=== PATIENT | male | born 1935 | race Caucasian/White ===

== ENCOUNTER 2016-05-10 14:29 | Inpatient (IN) | payer MEDICARE ==
[2016-05-10] MEDS ORDERED: Pantoprazole IV* 40 MG IV ONE (15:10)
[2016-05-10] MEDS: NS 0.9% 1000 ML* 2,000 ML IV ONE ×2 (16:20→17:01)
[2016-05-10 16:39] LABS: Hematocrit 28 % (42-52); Hemoglobin 9.4 g/dl (14.0-18.0); Mean Corpuscular HGB Conc 34 g/dl (31-36); Mean Corpuscular Hemoglobin 31 pg (27-31); Mean Corpuscular Volume 90 fL (80-94); Mean Platelet Volume 10 um3 (7.4-10.4); Red Blood Count 3.07 10^6/ul (4.0-5.4); Red Cell Distribution Width 14 % (10.5-15)
[2016-05-10 16:55] LABS: ALT 15 U/L (7-52); AST 18 U/L (13-39); Albumin 3.5 g/dL (3.2-5.2); Alkaline Phosphatase 30 U/L (34-104); Anion Gap 9 mmol/L (2-11); Blood Urea Nitrogen 36 mg/dL (6-24); C Reactive Protein < 1.00 mg/L (< 5.00); CO2 Carbon Dioxide 25 mmol/L (22-32); Calcium 8.8 mg/dL (8.6-10.3); Chloride 106 mmol/L (101-111); Creatine Kinase 100 U/L (10-223); EGFR African American 92.9 (>60); EGFR Non-African American 72.3 (>60); Globulin 2.2 g/dL (2-4); Glucose 115 mg/dL (70-100); Lipase 42 U/L (11.0-82.0); Potassium 3.9 mmol/L (3.5-5.0); Sodium 140 mmol/L (133-145); Total Protein 5.7 g/dL (6.4-8.9)
[2016-05-10 17:02] LABS: Troponin I 0.04 ng/mL (<0.04)
--- NOTE | 2016-05-10 17:52 | ED ---
lamin Campuzano Timothy, scribed for Kj Jj MD on 05/10/16 at 1508 . GI/ HPI - HPI Summary HPI Summary: Bebo Oro is a 80 yo male presenting to [facility] with 7-9 episodes of melena over the past [address] Ruiz recommended he present to [facility] because his Hgb dropped 6 points in 1 minute. He feels dizzy. He is not in any current pain. He is not on any medications. His MHx includes appendectomy. - History of Current Complaint Chief Complaint: EDGIBleed Time Seen by Provider: 05/10/16 14:59 Stated Complaint: BLOOD IN STOOL Hx Obtained From: Patient Onset/Duration: Started Days Ago, Still Present Timing: Constant Severity: Moderate Current Severity: Moderate Pain Intensity: 0 Associated Signs and Symptoms: Positive: Dizziness, Black Tarry Stool Aggravating Factor(s): Nothing Alleviating Factor(s): Nothing - Allergy/Home Medications Allergies/Adverse Reactions: Allergies Allergy/AdvReac Type Severity Reaction Status Date / Time No Known Allergies Allergy Verified 05/10/16 14:31 PMH/Surg Hx/FS Hx/Imm Hx - Surgical History Surgery Procedure, Year, and Place: appendectomy Infectious Disease History: No Infectious Disease History: Denies: Traveled Outside the [place] in Last 30 Days - Social History Alcohol Use: Rare Substance Use Type: Reports: None Smoking Status (MU): Never Smoked Tobacco Review of Systems Constitutional: Negative Eyes: Negative ENT: Negative Cardiovascular: Negative Respiratory: Negative Gastrointestinal: Other - melena Genitourinary: Negative Musculoskeletal: Negative Skin: Negative Neurological: Other - dizziness Psychological: Normal All Other Systems Reviewed And Are Negative: Yes Physical Exam - Summary Physical Exam Summary: The patient is well-nourished in no acute distress and in no acute pain. The skin is warm and dry and skin color reflects adequate perfusion. HEENT: The head is normocephalic and atraumatic. The pupils are equal and reactive. The conjunctivae without drainage but not pale. Nares are patent and without drainage. Mouth reveals moist mucous membranes and the throat is without erythema and exudate. The external ears are intact. The ear canals are patent and without drainage. The tympanic membranes are intact. Neck is supple with full range of motion and non-tender. There are no carotid bruits. There is no neck vein distension. Respiratory: Chest is non-tender. Lungs are clear to auscultation and breath sounds are symmetrical and equal. Cardiovascular: Hear is regular rate and rhythm. There is no murmur or rub auscultated. There is no peripheral edema and pulses are symmetrical and equal. Abdomen: The abdomen is soft and non-tender. There are normal bowel sounds heard in all four quadrants and there is no organomegaly palpated. Musculoskeletal: There is no back pain noted. Extremities are non-tender with full range of motion. There is good capillary refill. There is no peripheral edema or calf tenderness elicited. Neurological: Patient is alert and oriented to person, place and time. The patient has symmetrical motor strength in all four extremities. Cranial nerves are grossly intact. Deep tendon reflexes are symmetrical and equal in all four extremities. Psychiatric: The patient has an appropriate affect and does not exhibit any anxiety or depression. Triage Information Reviewed: Yes Vital Signs On Initial Exam: Initial Vitals Temp Pulse Resp BP Pulse Ox 97.5 F 94 16 131/82 100 05/10/16 14:31 05/10/16 14:31 05/10/16 14:31 05/10/16 14:31 05/10/16 14:31 Vital Signs Reviewed: Yes Diagnostics - Vital Signs Vital Signs Temp Pulse Resp BP Pulse Ox 05/10/16 14:46 92 97 05/10/16 14:44 130/79 05/10/16 14:31 97.5 F 94 16 131/82 100 - Laboratory Lab Results: Lab Results 05/10/16 05/10/16 05/10/16 Range/Units 16:25 16:25 16:25 WBC 7.0 (3.5-10.8) 10^3/ul RBC 3.07 L (4.0-5.4) 10^6/ul Hgb 9.4 L (14.0-18.0) g/dl Hct 28 L (42-52) % MCV 90 (80-94) fL MCH 31 (27-31) pg MCHC 34 (31-36) g/dl RDW 14 (10.5-15) % Plt Count 177 (150-450) 10^3/ul MPV 10 (7.4-10.4) um3 Neut % (Auto) 72.6 (38-83) % Lymph % (Auto) 17.6 L (25-47) % [place] % (Auto) 8.5 (1-9) % Eos % (Auto) 0.7 (0-6) % Baso % (Auto) 0.6 (0-2) % Absolute Neuts (auto) 5.1 (1.5-7.7) 10^3/ul Absolute Lymphs (auto) 1.2 (1.0-4.8) 10^3/ul Absolute Monos (auto) 0.6 (0-0.8) 10^3/ul Absolute Eos (auto) 0 (0-0.6) 10^3/ul Absolute Basos (auto) 0 (0-0.2) 10^3/ul Absolute Nucleated RBC 0 10^3/ul Nucleated RBC % 0.1 INR (Anticoag Therapy) (0.89-1.11) APTT (26.0-36.3) seconds Sodium 140 (133-145) mmol/L Potassium 3.9 (3.5-5.0) mmol/L Chloride 106 (101-111) mmol/L Carbon Dioxide 25 (22-32) mmol/L Anion Gap 9 (2-11) mmol/L BUN 36 H (6-24) mg/dL Creatinine 1.00 (0.67-1.17) mg/dL Est GFR ( Amer) 92.9 (>60) Est GFR (Non-Af Amer) 72.3 (>60) BUN/Creatinine Ratio 36.0 H (8-20) Glucose 115 H (70-100) mg/dL Lactic Acid 1.6 (0.5-2.0) mmol/L Calcium 8.8 (8.6-10.3) mg/dL Total Bilirubin 0.50 (0.2-1.0) mg/dL AST 18 (13-39) U/L ALT 15 (7-52) U/L Alkaline Phosphatase 30 L (34-104) U/L Total Creatine Kinase 100 (10-223) U/L Troponin I 0.04 H* (<0.04) ng/mL C-Reactive Protein < 1.00 (< 5.00) mg/L Total Protein 5.7 L (6.4-8.9) g/dL Albumin 3.5 (3.2-5.2) g/dL Globulin 2.2 (2-4) g/dL Albumin/Globulin Ratio 1.6 (1-3) Lipase 42 (11.0-82.0) U/L Blood Type Antibody Screen 05/10/16 05/10/16 Range/Units 16:25 16:25 WBC (3.5-10.8) 10^3/ul RBC (4.0-5.4) 10^6/ul Hgb (14.0-18.0) g/dl Hct (42-52) % MCV (80-94) fL MCH (27-31) pg MCHC (31-36) g/dl RDW (10.5-15) % Plt Count (150-450) 10^3/ul MPV (7.4-10.4) um3 Neut % (Auto) (38-83) % Lymph % (Auto) (25-47) % [place] % (Auto) (1-9) % Eos % (Auto) (0-6) % Baso % (Auto) (0-2) % Absolute Neuts (auto) (1.5-7.7) 10^3/ul Absolute Lymphs (auto) (1.0-4.8) 10^3/ul Absolute Monos (auto) (0-0.8) 10^3/ul Absolute Eos (auto) (0-0.6) 10^3/ul Absolute Basos (auto) (0-0.2) 10^3/ul Absolute Nucleated RBC 10^3/ul Nucleated RBC % INR (Anticoag Therapy) 1.06 (0.89-1.11) APTT 24.1 L (26.0-36.3) seconds Sodium (133-145) mmol/L Potassium (3.5-5.0) mmol/L Chloride (101-111) mmol/L Carbon Dioxide (22-32) mmol/L Anion Gap (2-11) mmol/L BUN (6-24) mg/dL Creatinine (0.67-1.17) mg/dL Est GFR ( Amer) (>60) Est GFR (Non-Af Amer) (>60) BUN/Creatinine Ratio (8-20) Glucose (70-100) mg/dL Lactic Acid (0.5-2.0) mmol/L Calcium (8.6-10.3) mg/dL Total Bilirubin (0.2-1.0) mg/dL AST (13-39) U/L ALT (7-52) U/L Alkaline Phosphatase (34-104) U/L Total Creatine Kinase (10-223) U/L Troponin I (<0.04) ng/mL C-Reactive Protein (< 5.00) mg/L Total Protein (6.4-8.9) g/dL Albumin (3.2-5.2) g/dL Globulin (2-4) g/dL Albumin/Globulin Ratio (1-3) Lipase (11.0-82.0) U/L Blood Type B Positive Antibody Screen Negative Result Diagrams: 05/10/16 16:25 05/10/16 16:25 Lab Statement: Any lab studies that have been ordered have been reviewed, and results considered in the medical decision making process. - EKG 1611 Cardiac Rate: NL - 77 BPM EKG Interpretation: NSR @ 77 BPM, normal axis GIGU Course/Dx - Course Assessment/Plan: Bebo Oro is a 80 yo male presenting to [facility] with 7-9 episodes of black tarry stool over the past 3 days. He was sent here by Dr. Ruiz for a Hgb declining 6 points in 1 minute. After clinical examination and review of his EKG and lab work, as well as discussion with Dr. Hogan, he will be admitted ot [facility] [place] for further evaluation and treatment. - Diagnoses Differential Diagnoses - Male: Peptic Ulcer Disease, Other Provider Diagnoses: GI bleed - Physician Notifications Discussed Care Of Patient With: 1520 - Dr. Ruiz's office - Attempted to reach Dr. Ruiz, but he is out this afternoon. 1645 - Dr. Hogan (hospitalist) - discussed Pt condition, agrees to admit Pt. Discharge - Discharge Plan Condition: Stable Disposition: ADMITTED TO [facility] Discharge Disposition Comment: admitted for further evaluation and treatment of his GI bleed Referrals: Quan Ruiz MD [Primary Care Provider] - The documentation as recorded by the lamin duffy Timothy accurately reflects the service I personally performed and the decisions made by me, Kj Jj MD.
[2016-05-10] MEDS ORDERED: NS 0.9% 1000 ML* 1,000 ML IV SCH (18:00)
[2016-05-10] MEDS ORDERED: Acetaminophen TAB* 325 MG PO PRN (18:00)
[2016-05-10 18:10] LABS: Urine Bilirubin Negative (Negative); Urine Glucose Negative (Negative); Urine Nitrite Negative (Negative)
[2016-05-10] MEDS: Pantoprazole IV* 80 MG in NS 0.9% 250 ML* 250 ML IVPB SCH (20:04)
[2016-05-10 21:08] LABS: Hematocrit 22 % (42-52); Hemoglobin 7.6 g/dl (14.0-18.0)
--- NOTE | 2016-05-11 00:44 | HP ---
HISTORY AND PHYSICAL: DATE OF ADMISSION: 05/10/16 PRIMARY CARE PROVIDER: Dr. Ruiz. CHIEF COMPLAINT: Black stools. HISTORY OF PRESENT ILLNESS: Mr. Oro is a 80-year-old male who has a history of prostate cancer, status post radiation therapy and Lupron therapy, as well as hyperlipidemia, who presented to the emergency room with complaints of black stools. The patient states that approximately at 11 a.m. on this past Tuesday, he ate some corned beef at lunch. He states he was at work when he ate this. He then began to feel bloated and uncomfortable around dinner time. He passed on eating dinner. He states that he had a bowel movement that evening that had red around the stool. The Tuesday prior to admission, he developed lightheadedness and was noted to be pale. He described disorientation; however , this does not actually mean confusion, but maybe queasiness. He did eat some cream of wheat. He had terrible gas that was very foul smelling. He states that he had 3 to 4 formed black bowel movements with scant amount of blood around in it. On Tuesday, he continued to have the abdominal discomfort and black stools. He believes he may have had two stools on Tuesday. On Tuesday morning, he called Dr. Ruiz and got into see Inés Fernandes NP, on the afternoon of admission. She performed blood work that revealed his hemoglobin had dropped from 16.0 on 03/23/16 to 10 on May 10 (today). She sent him to the emergency room for evaluation. The patient denies any NSAID use, denies any aspirin use. He states that he takes no medications routinely. He denies any acid reflux symptoms. He does state that he had a history of peptic ulcer approximately 40 years ago and a history of H. pylori that was treated by Dr. Ruiz in the past. The patient does admit to feeling mildly lightheaded. PAST MEDICAL HISTORY: 1. History of prostate cancer, status post radiation therapy and Lupron therapy. 2. Hyperlipidemia. 3. History of peptic ulcer disease 40 years ago. PAST SURGICAL HISTORY: Appendectomy. MEDICATIONS: None. ALLERGIES: No known drug allergies. FAMILY HISTORY: Mom at the age of 87 of a bowel obstruction. Dad of coronary disease and also had a history of prostate cancer. The patient also has a brother who is living at 90 years old and has prostate cancer. SOCIAL HISTORY: The patient is a nonsmoker. He drinks wine with dinner. 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 He is . His is his healthcare proxy. He has two children. REVIEW OF SYSTEMS: A complete 11-system review of systems was obtained. The patient in addition to the symptoms noted in the HPI, also had mild anorexia over the last several days and occasional palpitations. He has had gas discomfort. PHYSICAL EXAMINATION GENERAL: The patient is a well-developed elderly male, sitting up in the stretcher, in no acute distress. VITAL SIGNS: Blood pressure 114/70, pulse 80, respirations 20, temp 97.5, O2 sat 98% on room air. HEENT: Pupils are equal, they are round, they react to light. Extraocular muscles intact. Oropharynx is clear. Oral mucosa is moist. There is no submandibular, cervical, or supraclavicular adenopathy. Thyroid is not enlarged. No thyroid nodules are noted. PULMONARY: Lungs are clear to auscultation bilaterally. CARDIAC: Normal S1, S2. Regular rate and rhythm. There are no murmurs. There is no lower extremity edema. ABDOMEN: Bowel sounds present. Abdomen is soft, nontender, nondistended. MUSCULOSKELETAL: There is no cyanosis or clubbing of the digits. There is full active range of motion. NEURO: Cranial nerves II through XII are grossly intact. Sensation is intact to light touch throughout. Strength is 5/5 and symmetric, both upper and lower extremities bilaterally. PSYCH: The patient is alert, he is oriented x3. Affect appears appropriate. SKIN: Warm and dry. There are no rashes. DIAGNOSTIC STUDIES/LAB DATA: WBC 7.0, hemoglobin 9.4, hematocrit 28, platelets 177. INR 1.06. Sodium 140, potassium 3.9, chloride 106, CO2 25, BUN 36, creatinine 1.0, glucose 115, lactic acid 1.6, calcium 8.8. Bilirubin 0.5, AST 18, ALT 15, alk phos 30. CPK 100. Troponin 0.04. CRP less than 1. Albumin 3.5. Lipase 42. Urinalysis pending. EKG reveals normal sinus rhythm with prolonged ND interval, otherwise no acute ST-T wave abnormalities. ASSESSMENT AND PLAN: Mr. Oro is a 80-year male with minimal past medical history, who presents to the emergency room with complaints of black stools over the last 3 days as well as a significant drop in his hemoglobin from labs obtained in February 2016. 1. Probable upper gastrointestinal bleed. The patient's BUN is elevated at 36. I do not have any prior labs to compare to. My suspicion is that this represents an upper gastrointestinal bleed. The patient will be started on Protonix drip. Dr. Littlejohn has been consulted and the plan will be for endoscopy tomorrow morning. Followup hemoglobin will be obtained this evening at 9 p.m. At this point, the patient will not be transfused; however, he has been typed and screened and will be ready for transfusion if necessary. 2. Elevated troponin. I suspect this represents demand ischemia. The patient has no chest pain what so ever. Will get follow up troponin at 9 p.m. tonight. If up will get echocardiogram. 3. Hyperlipidemia. This has not been treated as an outpatient. Can be followed by Dr. Ruiz. 4. DVT prophylaxis. According to the Adult Thrombosis Prophylaxis Risk Factor Assessment Guide, the patient has a total risk factor score of 7 making him high risk. DVT prophylaxis will be with SCDs given his probable upper gastrointestinal bleed. 5. Code status is full and again the patient indicates that his is his healthcare proxy. TIME SPENT: Sixty-five minutes was spent admitting this patient. CC: Dr. Ruiz* [id number]/[facility] #: [id number] MTDD
[2016-05-11] MEDS: Pantoprazole IV* 80 MG in NS 0.9% 250 ML* 250 ML IVPB SCH ×3 (05:55→19:32)
[2016-05-11 07:35] LABS: Hematocrit 25 % (42-52); Hemoglobin 8.8 g/dl (14.0-18.0); Mean Corpuscular HGB Conc 35 g/dl (31-36); Mean Corpuscular Hemoglobin 31 pg (27-31); Mean Corpuscular Volume 89 fL (80-94); Mean Platelet Volume 10 um3 (7.4-10.4); Red Blood Count 2.86 10^6/ul (4.0-5.4); Red Cell Distribution Width 14 % (10.5-15); White Blood Count 3.9 10^3/ul (3.5-10.8)
[2016-05-11 07:42] LABS: BUN/Creatinine Ratio 26.8 (8-20); Calcium 7.9 mg/dL (8.6-10.3); EGFR African American 116.9 (>60); EGFR Non-African American 90.9 (>60); Potassium 3.7 mmol/L (3.5-5.0)
[2016-05-11 08:06] LABS: Troponin I 0.04 ng/mL (<0.04)
[2016-05-11] MEDS ORDERED: Midazolam* 1 MG/ML 10 ML VIAL (10 MG) ONE (14:46)
[2016-05-11] MEDS ORDERED: Meperidine SYRINGE* 50 MG/ML ONE (14:46)
--- NOTE | 2016-05-11 16:10 | PN ---
Subjective Date of Service: 05/11/16 Interval History: Patient seen and examined at bedside. He was awaiting endoscopy at time of assessment (approx. 1 pm) and denied having any further GIB. He denies dizziness , lightheadedness, CP, SOB, abd pain, n/v. Family History: Unchanged from Admission Social History: Unchanged from Admission Past Medical History: Unchanged from Admission Objective Active Medications: Acetaminophen (Tylenol Tab*) 650 mg PO Q4H PRN PRN Reason: PAIN Pantoprazole Sodium 80 mg/ (Sodium Chloride) 250 mls @ 25 mls/hr IVPB Q10H KHANH Last Admin: 05/11/16 14:17 Dose: Not Given Vital Signs 05/10/16 05/10/16 05/10/16 17:00 17:30 18:00 Temperature Pulse Rate 80 82 80 Respiratory 20 19 22 Rate Blood Pressure 114/70 128/58 (mmHg) O2 Sat by Pulse 98 96 98 Oximetry 05/10/16 05/10/16 05/10/16 18:34 18:43 19:33 Temperature 98.5 F 98.5 F Pulse Rate 77 77 Respiratory 16 16 17 Rate Blood Pressure 135/77 135/77 (mmHg) O2 Sat by Pulse 100 100 Oximetry 05/10/16 05/10/16 05/11/16 20:00 22:40 01:31 Temperature 98.0 F 98.1 F 98.4 F Pulse Rate 75 66 65 Respiratory 18 16 16 Rate Blood Pressure 121/72 97/53 100/58 (mmHg) O2 Sat by Pulse 96 98 Oximetry 05/11/16 05/11/16 05/11/16 02:04 04:36 07:15 Temperature 98.1 F 98.1 F Pulse Rate 65 66 Respiratory 16 16 16 Rate Blood Pressure 102/61 102/64 (mmHg) O2 Sat by Pulse 97 98 Oximetry 05/11/16 05/11/16 07:58 11:39 Temperature 98 F 97.7 F Pulse Rate 61 57 Respiratory 16 16 Rate Blood Pressure 100/64 112/65 (mmHg) O2 Sat by Pulse 95 95 Oximetry Oxygen Devices in Use Now: None Appearance: Male patient, lying in bed, in NAD Eyes: PERRLA Ears/Nose/Mouth/Throat: Clear Oropharnyx, Mucous Membranes Moist Neck: NL Appearance and Movements; NL JVP Respiratory: Symmetrical Chest Expansion and Respiratory Effort, Clear to Auscultation Cardiovascular: NL Sounds; No Murmurs; No JVD, RRR Abdominal: NL Sounds; No Tenderness; No Distention Extremities: No Edema Skin: No Rash or Ulcers Neurological: Alert and Oriented x 3, NL Muscle Strength and Tone Lines/Tubes/Other Access: Clean, Dry and Intact Peripheral IV Nutrition: Taking PO's Result Diagrams: 05/11/16 06:13 05/11/16 06:13 Additional Lab and Data: Lab Results 05/10/16 05/10/16 05/10/16 Range/Units 16:25 16:25 16:25 WBC 7.0 (3.5-10.8) 10^3/ul RBC 3.07 L (4.0-5.4) 10^6/ul Hgb 9.4 L (14.0-18.0) g/dl Hct 28 L (42-52) % MCV 90 (80-94) fL MCH 31 (27-31) pg MCHC 34 (31-36) g/dl RDW 14 (10.5-15) % Plt Count 177 (150-450) 10^3/ul MPV 10 (7.4-10.4) um3 Neut % (Auto) 72.6 (38-83) % Lymph % (Auto) 17.6 L (25-47) % [place] % (Auto) 8.5 (1-9) % Eos % (Auto) 0.7 (0-6) % Baso % (Auto) 0.6 (0-2) % Absolute Neuts (auto) 5.1 (1.5-7.7) 10^3/ul Absolute Lymphs (auto) 1.2 (1.0-4.8) 10^3/ul Absolute Monos (auto) 0.6 (0-0.8) 10^3/ul Absolute Eos (auto) 0 (0-0.6) 10^3/ul Absolute Basos (auto) 0 (0-0.2) 10^3/ul Absolute Nucleated RBC 0 10^3/ul Nucleated RBC % 0.1 INR (Anticoag Therapy) (0.89-1.11) APTT (26.0-36.3) seconds Sodium 140 (133-145) mmol/L Potassium 3.9 (3.5-5.0) mmol/L Chloride 106 (101-111) mmol/L Carbon Dioxide 25 (22-32) mmol/L Anion Gap 9 (2-11) mmol/L BUN 36 H (6-24) mg/dL Creatinine 1.00 (0.67-1.17) mg/dL Est GFR ( Amer) 92.9 (>60) Est GFR (Non-Af Amer) 72.3 (>60) BUN/Creatinine Ratio 36.0 H (8-20) Glucose 115 H (70-100) mg/dL Lactic Acid 1.6 (0.5-2.0) mmol/L Calcium 8.8 (8.6-10.3) mg/dL Total Bilirubin 0.50 (0.2-1.0) mg/dL AST 18 (13-39) U/L ALT 15 (7-52) U/L Alkaline Phosphatase 30 L (34-104) U/L Total Creatine Kinase 100 (10-223) U/L Troponin I 0.04 H* (<0.04) ng/mL C-Reactive Protein < 1.00 (< 5.00) mg/L Total Protein 5.7 L (6.4-8.9) g/dL Albumin 3.5 (3.2-5.2) g/dL Globulin 2.2 (2-4) g/dL Albumin/Globulin Ratio 1.6 (1-3) Lipase 42 (11.0-82.0) U/L Blood Type Antibody Screen 05/10/16 05/10/16 Range/Units 16:25 16:25 WBC (3.5-10.8) 10^3/ul RBC (4.0-5.4) 10^6/ul Hgb (14.0-18.0) g/dl Hct (42-52) % MCV (80-94) fL MCH (27-31) pg MCHC (31-36) g/dl RDW (10.5-15) % Plt Count (150-450) 10^3/ul MPV (7.4-10.4) um3 Neut % (Auto) (38-83) % Lymph % (Auto) (25-47) % [place] % (Auto) (1-9) % Eos % (Auto) (0-6) % Baso % (Auto) (0-2) % Absolute Neuts (auto) (1.5-7.7) 10^3/ul Absolute Lymphs (auto) (1.0-4.8) 10^3/ul Absolute Monos (auto) (0-0.8) 10^3/ul Absolute Eos (auto) (0-0.6) 10^3/ul Absolute Basos (auto) (0-0.2) 10^3/ul Absolute Nucleated RBC 10^3/ul Nucleated RBC % INR (Anticoag Therapy) 1.06 (0.89-1.11) APTT 24.1 L (26.0-36.3) seconds Sodium (133-145) mmol/L Potassium (3.5-5.0) mmol/L Chloride (101-111) mmol/L Carbon Dioxide (22-32) mmol/L Anion Gap (2-11) mmol/L BUN (6-24) mg/dL Creatinine (0.67-1.17) mg/dL Est GFR ( Amer) (>60) Est GFR (Non-Af Amer) (>60) BUN/Creatinine Ratio (8-20) Glucose (70-100) mg/dL Lactic Acid (0.5-2.0) mmol/L Calcium (8.6-10.3) mg/dL Total Bilirubin (0.2-1.0) mg/dL AST (13-39) U/L ALT (7-52) U/L Alkaline Phosphatase (34-104) U/L Total Creatine Kinase (10-223) U/L Troponin I (<0.04) ng/mL C-Reactive Protein (< 5.00) mg/L Total Protein (6.4-8.9) g/dL Albumin (3.2-5.2) g/dL Globulin (2-4) g/dL Albumin/Globulin Ratio (1-3) Lipase (11.0-82.0) U/L Blood Type B Positive Antibody Screen Negative Assess/Plan/Problems-Billing Assessment: Mr. Oro is a 80 yo male with a PMH of prostate ca, PUD, and HLD who presented to the ED on 05/10/16 with black tarry stools and anemia secondary to upper GI bleed. - Patient Problems (1) Upper gastrointestinal bleed Code(s): K92.2 - GASTROINTESTINAL HEMORRHAGE, UNSPECIFIED Comment: With remote history of PUD. S/p 2 units PRBC. No further episodes of melena or hematochezia. No abd pain. Continue pantoprazole gtt, IVF. GI consult and endoscopy today. (2) Elevated troponin Code(s): R74.8 - ABNORMAL LEVELS OF OTHER SERUM ENZYMES Comment: Suspect demand ischemia. Patient denies chest pain. Recheck EKG. (3) Hyperlipidemia Code(s): E78.5 - HYPERLIPIDEMIA, UNSPECIFIED Comment: Not on medication. Outpatient f/u with PCP. (4) DVT prophylaxis Code(s): JDH1986 - Comment: SCDs in the presence of upper GIB Status and Disposition: OBV to inpatient admit. D/c to home when medically stable.
--- NOTE | 2016-05-11 22:55 | CONS ---
GASTROENTEROLOGY CONSULT: DATE: 05/11/16 CONSULTING PHYSICIAN: Dr. Laura Hogan. REASON FOR CONSULT: Black stool; fall in hemoglobin to 9.4, baseline of 15 to 16, in a man who does not use NSAIDs, but was treated for H. pylori possibly 30 years ago. 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 Describes having a bad night on Tuesday night. On Tuesday, he began passing jet black stool. There was some blood around the edge. He decided he did not want go to the emergency room in uncontrolled circumstances. His last meal was sometime on Tuesday when he ate Cream of Wheat. He had a couple of more black stools on Tuesday. Yesterday, he went to the gastro office and hemoglobin was 10.0. He was sent to the emergency room and admitted. Since admission, he has not had any further stools and he has not had any vomiting. His hemoglobin went down to 7.6 and he has been transfused 2 units and is now 8.8. His platelets have been normal at 177 and INR 1.06. Initial BUN was 36, creatinine 1.0. He denies any history of dyspepsia recently. He has been eating just fine. He did have a colonoscopy, 05/09/13, where a small sigmoid polyp was removed and some mild sigmoid diverticulosis seen. He states his bowel habit is regular daily and without bleeding. PAST MEDICAL HISTORY: 1. History of H. pylori and peptic ulcer disease, 1970s - treated by Dr. Ruiz. 2. History of prostate cancer - status post radiation treatment in 2007 and then Lupron injections for about 4 or 5 years ending in 2012. 3. Appendectomy. 4. Dyslipidemia. MEDICATIONS: None routinely as an outpatient. He denies taking any aspirin or NSAIDs. ALLERGIES: None to drugs. FAMILY HISTORY: No history of colon cancer. He has a brother aged 90, who has prostate cancer. SOCIAL HISTORY: He is . Drinks some wine with dinner and maybe some vodka. 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 He has 2 children. REVIEW OF SYSTEMS: No history of [place], syncope, valvular disease, hemoptysis, TB , hepatitis, alcohol abuse, or abdominal surgery other than the appendectomy. PHYSICAL EXAM: He is a vigorous-appearing older man, slightly pale, in no overt distress. Temperature 97.7, pulse 57, respirations 16, blood pressure 112 /65. He has no adenopathy. His lungs are clear and heart sounds are normal. The abdomen is moderately obese, firm, and without focal tenderness. Rectal: Deferred. Extremities show no edema. LABORATORY DATA: Other labs: LFTs normal. Albumin 3.5. PSA, most recently , 0.67. CRP less than 1. IMPRESSION: This 80-year-old man developed vague abdominal distress and then black stool. He has intriguing history of having been treated for Helicobacter pylori apparently with care and now not taking any nonsteroidal antiinflammatory drugs. This makes the diagnosis less than clear. Clearly, he needs an upper endoscopy. The elevated BUN corroborates well with the black stool history. The prominence of vague bloating discomfort not typical of peptic complaint prior to the onset of this is a little odd. [id number]/[facility] #: [id number] [facility]
--- NOTE | 2016-05-12 04:49 | PRO ---
DATE: 05/11/16 - ROOM #[id number] REFERRING PHYSICIAN: Dr. Quan Ruiz.* PROCEDURE: Upper gastrointestinal endoscopy and greater curvature biopsy for CLOtest. INDICATION: This 80-year-old man presented with dark stool. He does not take any NSAIDs or aspirin and seems reliable on that point. He was treated for H. pylori 20 to [address] Ruiz, who is his primary. He had a colonoscopy exactly 3 years ago with just a small sigmoid polyp removed. Since hospital admission 24 hours ago, he has not had any emesis or stool at all. He has been transfused 2 units with his hemoglobin going from 7.6 to 8.8. ENDOSCOPIST: Dr. Littlejohn. MEDICATIONS: Midazolam 8, meperidine 50. FINDINGS: He is a healthy-appearing, slightly pale, middle-aged man in no distress. EGD: Larynx - minimal views. Esophagus - easily entered, the mucosa is normal in the upper, mid, and lower esophagus with the EG junction at 37 to 38. There is a small to medium hiatal hernia without any erosions. There is no fundic prolapse. Stomach - generally normal contours and rugal folds. There is a mild patchy scarring or irregularity in the body and proximal antrum. There are no erosions and no blood seen. No ulcer is seen. Retroflex views were obtained a couple of times. Again, there was no deformity. The mid to distal antrum appeared absolutely normal and the pylorus was normal and symmetric. Duodenum - The bulb had a patchy punctate erythema, but no ulcer could be visualized per se. There was no scarring or deformity. Detailed views were obtained around the sweep and there did not appear to be any hidden areas. The second, third, and fourth portions of the duodenum appeared normal. There was no blood. IMPRESSION: 1. Mild gastritis in the body and duodenitis of the bulb - mild and without definite stigmata of a bleeding source. 2. Small to medium hiatal hernia. 3. History of H. pylori - CLOtest pending. 4. Gastrointestinal bleeding - good evidence that this was an upper gastrointestinal bleed, and although the endoscopic images do not demonstrate a specific site, continuing the PPI drip for another day and then twice a day oral therapy for a couple of weeks is recommended and then he can go to once a day treatment and Dr. Ruiz will be able to follow up. A Dieulafoy lesion or perhaps recurrence of H. pylori has to be considered. At this time, he does not appear to be bleeding and no other studies would appear to be useful. [id number]/[facility] #: [id number] [facility]ICAL CENTERLynette
[2016-05-12] MEDS: Pantoprazole IV* 80 MG in NS 0.9% 250 ML* 250 ML IVPB SCH (05:12)
[2016-05-12] MEDS ORDERED: Omeprazole CAP* 20 MG PO SCH (07:30)
[2016-05-12 07:53] LABS: Hematocrit 27 % (42-52); Hemoglobin 9.1 g/dl (14.0-18.0); Mean Corpuscular HGB Conc 34 g/dl (31-36); Mean Corpuscular Hemoglobin 31 pg (27-31); Mean Corpuscular Volume 90 fL (80-94); Mean Platelet Volume 9 um3 (7.4-10.4); Red Blood Count 2.95 10^6/ul (4.0-5.4); Red Cell Distribution Width 14 % (10.5-15); White Blood Count 4.8 10^3/ul (3.5-10.8)
[2016-05-12 08:24] LABS: BUN/Creatinine Ratio 18.8 (8-20); Calcium 8.2 mg/dL (8.6-10.3); EGFR African American 112.1 (>60); EGFR Non-African American 87.2 (>60); Potassium 3.7 mmol/L (3.5-5.0)
[2016-05-12 12:29] VITALS: BP 115/62
--- NOTE | 2016-05-12 14:35 | PN ---
Subjective Date of Service: 05/12/16 Interval History: Patient seen and examined at bedside. He is eager to go home, denying fever/ chills, CP, SOB, abd pain, n/v. He denies any further black stools or rectal bleeding. He is tolerating PO intake. No acute nursing concerns. Patient not yet seen by GI today, but case discussed with Dr. Ruiz (who is PCP). He is okay with discharge, given hemodynamic stability and tolerance of PO diet. Patient to f/u with Dr. Ruiz as outpatient. Family History: Unchanged from Admission Social History: Unchanged from Admission Past Medical History: Unchanged from Admission Objective Active Medications: Acetaminophen (Tylenol Tab*) 650 mg PO Q4H PRN PRN Reason: PAIN Omeprazole (Prilosec Cap*) 20 mg PO 0730,1630 KHANH Last Admin: 05/12/16 07:51 Dose: 20 mg Vital Signs 05/11/16 05/11/16 05/11/16 16:35 19:40 20:00 Temperature 97.9 F 97.6 F Pulse Rate 56 71 Respiratory 16 18 17 Rate Blood Pressure 102/58 116/64 (mmHg) O2 Sat by Pulse 95 97 Oximetry 05/11/16 05/12/16 05/12/16 23:56 03:45 07:23 Temperature 97.6 F 98.1 F 97.8 F Pulse Rate 55 65 66 Respiratory 18 20 18 Rate Blood Pressure 100/56 107/56 113/63 (mmHg) O2 Sat by Pulse 96 93 96 Oximetry 05/12/16 05/12/16 08:00 11:38 Temperature 98.0 F Pulse Rate 63 Respiratory 18 18 Rate Blood Pressure 115/62 (mmHg) O2 Sat by Pulse 96 Oximetry Oxygen Devices in Use Now: None Appearance: Male patient, lying in bed, in NAD. Eyes: PERRLA Ears/Nose/Mouth/Throat: Clear Oropharnyx, Mucous Membranes Moist Neck: NL Appearance and Movements; NL JVP Respiratory: Symmetrical Chest Expansion and Respiratory Effort, Clear to Auscultation Cardiovascular: NL Sounds; No Murmurs; No JVD, RRR Abdominal: NL Sounds; No Tenderness; No Distention Extremities: No Edema Skin: No Rash or Ulcers Neurological: Alert and Oriented x 3 Lines/Tubes/Other Access: Clean, Dry and Intact Peripheral IV Nutrition: Taking PO's Result Diagrams: 05/12/16 07:13 05/12/16 07:13 Additional Lab and Data: Lab Results 05/10/16 05/10/16 05/10/16 Range/Units 16:25 16:25 16:25 WBC 7.0 (3.5-10.8) 10^3/ul RBC 3.07 L (4.0-5.4) 10^6/ul Hgb 9.4 L (14.0-18.0) g/dl Hct 28 L (42-52) % MCV 90 (80-94) fL MCH 31 (27-31) pg MCHC 34 (31-36) g/dl RDW 14 (10.5-15) % Plt Count 177 (150-450) 10^3/ul MPV 10 (7.4-10.4) um3 Neut % (Auto) 72.6 (38-83) % Lymph % (Auto) 17.6 L (25-47) % [place] % (Auto) 8.5 (1-9) % Eos % (Auto) 0.7 (0-6) % Baso % (Auto) 0.6 (0-2) % Absolute Neuts (auto) 5.1 (1.5-7.7) 10^3/ul Absolute Lymphs (auto) 1.2 (1.0-4.8) 10^3/ul Absolute Monos (auto) 0.6 (0-0.8) 10^3/ul Absolute Eos (auto) 0 (0-0.6) 10^3/ul Absolute Basos (auto) 0 (0-0.2) 10^3/ul Absolute Nucleated RBC 0 10^3/ul Nucleated RBC % 0.1 INR (Anticoag Therapy) (0.89-1.11) APTT (26.0-36.3) seconds Sodium 140 (133-145) mmol/L Potassium 3.9 (3.5-5.0) mmol/L Chloride 106 (101-111) mmol/L Carbon Dioxide 25 (22-32) mmol/L Anion Gap 9 (2-11) mmol/L BUN 36 H (6-24) mg/dL Creatinine 1.00 (0.67-1.17) mg/dL Est GFR ( Amer) 92.9 (>60) Est GFR (Non-Af Amer) 72.3 (>60) BUN/Creatinine Ratio 36.0 H (8-20) Glucose 115 H (70-100) mg/dL Lactic Acid 1.6 (0.5-2.0) mmol/L Calcium 8.8 (8.6-10.3) mg/dL Total Bilirubin 0.50 (0.2-1.0) mg/dL AST 18 (13-39) U/L ALT 15 (7-52) U/L Alkaline Phosphatase 30 L (34-104) U/L Total Creatine Kinase 100 (10-223) U/L Troponin I 0.04 H* (<0.04) ng/mL C-Reactive Protein < 1.00 (< 5.00) mg/L Total Protein 5.7 L (6.4-8.9) g/dL Albumin 3.5 (3.2-5.2) g/dL Globulin 2.2 (2-4) g/dL Albumin/Globulin Ratio 1.6 (1-3) Lipase 42 (11.0-82.0) U/L Blood Type Antibody Screen 05/10/16 05/10/16 Range/Units 16:25 16:25 WBC (3.5-10.8) 10^3/ul RBC (4.0-5.4) 10^6/ul Hgb (14.0-18.0) g/dl Hct (42-52) % MCV (80-94) fL MCH (27-31) pg MCHC (31-36) g/dl RDW (10.5-15) % Plt Count (150-450) 10^3/ul MPV (7.4-10.4) um3 Neut % (Auto) (38-83) % Lymph % (Auto) (25-47) % [place] % (Auto) (1-9) % Eos % (Auto) (0-6) % Baso % (Auto) (0-2) % Absolute Neuts (auto) (1.5-7.7) 10^3/ul Absolute Lymphs (auto) (1.0-4.8) 10^3/ul Absolute Monos (auto) (0-0.8) 10^3/ul Absolute Eos (auto) (0-0.6) 10^3/ul Absolute Basos (auto) (0-0.2) 10^3/ul Absolute Nucleated RBC 10^3/ul Nucleated RBC % INR (Anticoag Therapy) 1.06 (0.89-1.11) APTT 24.1 L (26.0-36.3) seconds Sodium (133-145) mmol/L Potassium (3.5-5.0) mmol/L Chloride (101-111) mmol/L Carbon Dioxide (22-32) mmol/L Anion Gap (2-11) mmol/L BUN (6-24) mg/dL Creatinine (0.67-1.17) mg/dL Est GFR ( Amer) (>60) Est GFR (Non-Af Amer) (>60) BUN/Creatinine Ratio (8-20) Glucose (70-100) mg/dL Lactic Acid (0.5-2.0) mmol/L Calcium (8.6-10.3) mg/dL Total Bilirubin (0.2-1.0) mg/dL AST (13-39) U/L ALT (7-52) U/L Alkaline Phosphatase (34-104) U/L Total Creatine Kinase (10-223) U/L Troponin I (<0.04) ng/mL C-Reactive Protein (< 5.00) mg/L Total Protein (6.4-8.9) g/dL Albumin (3.2-5.2) g/dL Globulin (2-4) g/dL Albumin/Globulin Ratio (1-3) Lipase (11.0-82.0) U/L Blood Type B Positive Antibody Screen Negative Assess/Plan/Problems-Billing Assessment: Mr. Oro is a 80 yo male with a PMH of prostate ca, PUD, and HLD who presented to the ED on 05/10/16 with black tarry stools and anemia secondary to upper GI bleed. - Patient Problems (1) Upper gastrointestinal bleed Code(s): K92.2 - GASTROINTESTINAL HEMORRHAGE, UNSPECIFIED Comment: With remote history of PUD. S/p 2 units PRBC 05/10 No further episodes of melena or hematochezia. No abd pain. Started on omeprazole BID, which has been prescribed. Clotest negative. Outpatient f/u with Dr. Ruiz. (2) Elevated troponin Code(s): R74.8 - ABNORMAL LEVELS OF OTHER SERUM ENZYMES Comment: Suspect demand ischemia. Patient denies chest pain. (3) Hyperlipidemia Code(s): E78.5 - HYPERLIPIDEMIA, UNSPECIFIED Comment: Not on medication. Outpatient f/u with PCP. (4) DVT prophylaxis Code(s): PQO6317 - Comment: SCDs in the presence of upper GIB Status and Disposition: OBV to inpatient admit. D/c to home.
--- NOTE | 2016-05-13 04:47 | DS ---
DISCHARGE SUMMARY: DATE OF ADMISSION: 05/10/16 DATE OF DISCHARGE: 05/12/16 PROVIDER: Esthela Laguerre NP. ATTENDING PHYSICIAN: Dr. Frandy Donnelly *(as dictated by Esthela Laguerre NP ). CONSULTING PHYSICIANS: 1. Baltazar Littlejohn MD, Gastroenterology. 2. Quan Ruiz MD, Gastroenterology. PRIMARY CARE PROVIDER: Quan Ruiz MD PRIMARY DISCHARGE DIAGNOSES: 1. Upper gastrointestinal bleed. 2. Anemia secondary to acute gastrointestinal bleed. SECONDARY DISCHARGE DIAGNOSES: 1. History of prostate cancer. 2. Hyperlipidemia. 3. History of peptic ulcer disease. MEDICATIONS ON DISCHARGE: 1. Tylenol 650 mg q. 4 hours p.r.n. 2. Prilosec 20 mg b.i.d. This is a new medication. HOSPITAL COURSE OF STAY: For full details, please refer to the H and P provided by Dr. Hogan on 05/10/16. In summary, Mr. Oro is a 80-year- old male with a past medical history significant for prostate cancer, hyperlipidemia, who presented to the ER with complaint and concern of black stools. He also reported abdominal discomfort and pallor. He went to see his primary care provider and was seen by Inés Fernandes NP, who performed blood work and noted that the patient had an acute drop in his hemoglobin and he was sent to the ER for further evaluation. Mr. Oro was admitted with concern for upper GI bleeding as his BUN was elevated, his H and H was significantly lower than baseline. He was started on Protonix drip and he received 2 units of blood overnight. The following morning, the patient reported improvement in his symptoms and denied any further bleeding. He underwent an endoscopy, which did not show any definitive site of bleeding. Per Dr. Littlejohn's note, it was felt that the patient most likely has mild gastritis in the body and duodenitis of the bulb, which is mild and without definite stigmata of a bleeding source. He does have a small to medium hiatal hernia. The patient's CLOtest is negative. Mr. Oro was maintained on Protonix drip overnight and started on omeprazole b.i.d. this morning on 05/12/16. He is tolerating his p.o. diet and has had no further complaints or concerns. His H and H is stable and improving. The patient is very eager to go home. Dr. Ruiz was unable to see the patient prior to discharge, but per our discussion, feels that the patient sounds ready for discharge. He will follow up with the patient in the outpatient setting. The patient was advised to be continued on omeprazole b.i.d. As his CLOtest was negative, there is no cause for antibiotics at this time. I did discuss with the patient that he should advance his diet slowly and avoid heavy irritating and/or spicy foods and alcohol. He verbalized understanding of this. Additionally, we discussed the need to be maintained on omeprazole b.i.d. until advised otherwise by his PCP. Also, the patient will have a re-draw of his CBC on Tuesday of this week with the results sent to his PCP in order to make sure that his hemoglobin and hematocrit remain stable. At the time of discharge, the patient is alert and oriented. Vital signs stable. He denies any abdominal pain, nausea, vomiting, or diarrhea. He has not had any further black tarry stools or hematochezia or bright red blood per rectum. His pallor is improved. No other acute concerns. DISCHARGE: Mr. Oro will be discharged to home on 05/12/16 with a plan to follow up with his PCP within the next week. DIET: Soft diet. Avoid spicy, heavy or irritating foods, and alcohol. ACTIVITY: As tolerated. CONDITION: Stable. DISPOSITION: To home. TIME SPENT: Time spent on this discharge was approximately 40 minutes. Again, this is only a brief summary of the patient's hospital course of stay. For full details, please refer to the full medical record. If you have any further questions or need further assistance, please feel free to contact me at [phone]. ESTHELA LAGUERRE NP CC: Quan Ruiz MD* [id number]/[facility] #: [id number] RAHUL
== END 2016-05-12 15:30 | disposition home or self-care (01) | DRG 812 ==
LOC: ED 14:29 → SSU 16:52 → OBSVTOIN 05-11 16:13
PROVIDERS: ADMIT Hospitalist; ATTEND Hospitalist
PROC: 30233N1 Transfusion of Nonautologous Red Blood Cells into Peripheral Vein, Percutaneous Approach (ICD-10-PCS; principal; 2016-05-11)
PROC: 0DJ08ZZ Inspection of Upper Intestinal Tract, Via Natural or Artificial Opening Endoscopic (ICD-10-PCS; 2016-05-11)
DX: D64.9 Anemia, unspecified (principal); E78.5 Hyperlipidemia, unspecified; R79.89 Other specified abnormal findings of blood chemistry; K29.70 Gastritis, unspecified, without bleeding; K29.80 Duodenitis without bleeding; K44.9 Diaphragmatic hernia without obstruction or gangrene; Z87.11 Personal history of peptic ulcer disease; Z85.46 Personal history of malignant neoplasm of prostate; Z92.3 Personal history of irradiation; Z86.010 Personal history of colon polyps
CPT/HCPCS: 36415; 80048; 80053; 81003; 82550; 83605; 83690; 84484; 85014; 85018; 85025; 85027; 85610; 85730; 86140; 86850; 86900; 86901; 86922; 87077; 93005; A9270-GY; J2250; P9040